=== PATIENT | female | born 1960 | race Caucasian/White ===

== ENCOUNTER 2020-12-20 12:27 | Emergency (ER) | payer MEDICARE, MEDICAID ==
[~2020-12-20 12:27] MED LIST: DES150T PO; OMEP-84 PO
--- NOTE | 2020-12-20 12:42 | NUR ---
Patient to triage with right hand laceration. Dressing in place unable to visualize laceration. Pt came in to triage, sat down and ask if she was going to have to wait. I explained that there would be some wait time. Pt got up and said, "I'm not waiting" and left before triage.
== END 2020-12-20 14:48 | disposition left against medical advice (07) ==
LOC: ER 12:28
DX: S61.411A Laceration without foreign body of right hand, initial encounter (principal); Z53.21 Procedure and treatment not carried out due to patient leaving prior to being seen by health care provider; X58.XXXA Exposure to other specified factors, initial encounter; Y93.89 Activity, other specified; Y92.89 Other specified places as the place of occurrence of the external cause; Y99.8 Other external cause status

== ENCOUNTER 2021-01-04 15:13 | Emergency (ER) | payer MEDICARE, MEDICAID ==
[~2021-01-04] VITALS: Ht 157.5 cm; Wt 78.4 kg
[2021-01-04 15:20] VITALS: BP 140/89
== END 2021-01-04 17:17 | disposition home or self-care (01) ==
LOC: ER 15:14
DX: F41.9 Anxiety disorder, unspecified (principal); F12.90 Cannabis use, unspecified, uncomplicated; F15.90 Other stimulant use, unspecified, uncomplicated; F17.200 Nicotine dependence, unspecified, uncomplicated; Z56.0 Unemployment, unspecified; Z90.49 Acquired absence of other specified parts of digestive tract; Z88.6 Allergy status to analgesic agent; Z88.8 Allergy status to other drugs, medicaments and biological substances; Z91.048 Other nonmedicinal substance allergy status; Z79.899 Other long term (current) drug therapy; Z72.89 Other problems related to lifestyle
CPT/HCPCS: 99281

== ENCOUNTER 2021-01-09 11:36 | Emergency (ER) | payer MEDICARE, MEDICAID ==
[~2021-01-09] VITALS: Ht 157.5 cm; Wt 77.3 kg
--- NOTE | 2021-01-09 12:00 | NUR ---
Pt had lunch and changed into green scrubs
[2021-01-09 12:19] LABS: BASOPHILS # (AUTO) 0.1 X10'3 (0-0.2); EOSINOPHILS # (AUTO) 0.2 X10'3 (0-0.9); EOSINOPHILS % (AUTO) 2.8 % (0-6); HEMATOCRIT 37.6 % (35.0-45.0); HEMOGLOBIN 12.8 g/dl (12.0-16.0); LYMPHOCYTES # (AUTO) 1.4 X10'3 (1.1-4.8); LYMPHOCYTES % (AUTO) 23.6 % (21-51); MEAN CORPUSCULAR HEMOGLOBIN 30.9 PG (27.0-31.0); MEAN CORPUSCULAR HGB CONC 33.9 g/dL (33.0-36.5); MEAN CORPUSCULAR VOLUME 91.1 FL (78-98); MEAN PLATELET VOLUME 8.3 FL (7.4-10.4); MONOCYTES # (AUTO) 0.4 X10'3 (0-0.9); MONOCYTES % (AUTO) 6.8 % (2-12); NEUTROPHILS # (AUTO) 3.8 X10'3 (1.8-7.7); NEUTROPHILS % (AUTO) 65.8 % (42-75); PLATELET COUNT 131 X10'3 (140-440); RED BLOOD COUNT 4.13 X10'6 (4.20-5.60); RED CELL DISTRIBUTION WIDTH 12.9 % (11.5-14.5); WHITE BLOOD COUNT 5.7 X10'3 (4.5-11.0)
[2021-01-09 12:38] LABS: CLARITY,URINE SLIGHTLY CLOUDY (Clear); COLOR,URINE YELLOW (Yellow); GLUCOSE, URINE NEGATIVE (Neg); KETONES,URINE NEGATIVE (Neg); LEUKOCYTE ESTERASE ,URINE NEGATIVE (Neg); NITRITES, URINE NEGATIVE (Neg); OCCULT BLOOD,URINE NEGATIVE (Neg); PH,URINE 5.5 (4.8-8.0); PROTEIN,URINE NEGATIVE (Neg); UROBILINOGEN,URINE 0.2 E.U/dL (0.2-1.0)
[2021-01-09 12:44] LABS: URINE AMPHETAMINE SCREEN NEGATIVE (Neg); URINE BARBITUATE SCREEN NEGATIVE (Neg); URINE BENZODIAZEPINES SCREEN NEGATIVE (Neg); URINE CANNABINOID SCREEN POSITIVE (Neg); URINE COCAINE SCREEN NEGATIVE (Neg); URINE METHADONE SCREEN NEGATIVE (Neg); URINE OPIATE SCREEN NEGATIVE (Neg); URINE PHENCYCLIDINE SCREEN NEGATIVE (Neg)
[2021-01-09 12:47] LABS: UA COLLECTION TYPE CLN CATCH MIDSTREAM
[2021-01-09 13:02] LABS: BACTERIA,URINE FEW /HPF (Neg); FINE GRANULAR CAST 0-3 /LPF (NEGATIVE); MUCUS STRANDS FEW /LPF (Neg); RBC,URINE 0-2 /HPF (0-2)
[2021-01-09 13:02] LABS: ALANINE AMINOTRANSFERASE 25 U/L (12-78); ALBUMIN 3.8 G/DL (3.4-5.0); ALBUMIN/GLOBULIN RATIO 1.1 (1.1-1.5); ALKALINE PHOSPHATASE 44 IU/L (46-116); ANION GAP 10 (8-16); ASPARTATE AMINO TRANSFERASE 21 U/L (10-37); BILIRUBIN,TOTAL 0.2 MG/DL (0.1-1.0); BLOOD UREA NITROGEN 13 MG/DL (7-18); BUN/CREATININE RATIO 17.1 (6.6-38.0); CALCIUM 8.4 MG/DL (8.5-10.1); CHLORIDE 107 MMOL/L (99-107); CREATININE 0.76 MG/DL (0.40-0.90); GLUCOSE 98 MG/DL (70-104); SODIUM 142 MMOL/L (135-145); TOTAL CARBON DIOXIDE 25.1 MMOL/L (24-32); TOTAL PROTEIN 7.2 G/DL (6.4-8.2); eGFR 78 ML/MIN
[2021-01-09 13:07] LABS: POTASSIUM 4.1 MMOL/L (3.5-5.1)
[2021-01-09 13:10] LABS: SQUAMOUS EPITHELIAL CELL,UR MODERATE /LPF (FEW)
[2021-01-09 13:18] LABS: ETHANOL < 0.010 GM/DL (0.0-0.010)
--- NOTE | 2021-01-09 15:40 | NUR ---
Pt resting comfortably on bed.
--- NOTE | 2021-01-09 17:56 | NUR ---
Pt resting comfortably on bed. Equal rise and fall of chest.
--- NOTE | 2021-01-09 18:30 | NUR ---
RECEIVED REPORT FROM ED RN ACRLOS. PT TRANSFERRED TO OF BED [facility] ISSUE.
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
[2021-01-09] MEDS ORDERED: OMEP-50 PO (19:40)
[2021-01-09] MEDS ORDERED: SERT-434 PO (19:40)
[2021-01-09] MEDS ORDERED: BUPR-72 PO (19:40)
[2021-01-09] MEDS ORDERED: TRAZ-256 PO (19:40)
[2021-01-09] MEDS ORDERED: SIMV-42 PO (19:40)
[2021-01-09] MEDS ORDERED: GABA-534 PO (19:40)
[2021-01-09] MEDS ORDERED: BUPR1FIL5 SL (19:40)
[2021-01-09] MEDS ORDERED: gabapentin 400mg capsule PO PRN (19:55)
[2021-01-09] MEDS: buprenorphine/naloxone 2-0.5mg sublingual tablet SL SCH (20:00)
[2021-01-09] MEDS ORDERED: atorvastatin 10mg tablet PO SCH (21:00)
[2021-01-09] MEDS ORDERED: traZODone 50mg tablet PO SCH (21:00)
--- NOTE | 2021-01-09 21:01 | NUR ---
faxed negative covid result to [facility] to assist with pt placement
--- NOTE | 2021-01-09 23:06 | NUR ---
pt appears to be sleeping peacefully on right side. no s/s acute distress, respirations even and unlabored.
--- NOTE | 2021-01-10 02:20 | NUR ---
pt ambulated up to bathroom and back to bed without issue. now resting comfortably on left side. no s/s acute distress at this time
--- NOTE | 2021-01-10 05:25 | NUR ---
pt appears to be resting comfortably on left side. no s/s acute distress at this time. respirations even and unlabored
[2021-01-10 06:01] VITALS: BP 162/93
--- NOTE | 2021-01-10 06:33 | NUR ---
pt sleeping on her lft lateral position ,RR WNL,will cont to monitor.
--- NOTE | 2021-01-10 07:35 | NUR ---
pt went to use restroom at this time .
--- NOTE | 2021-01-10 07:44 | NUR ---
pt laying on her rgt lateral side ,no distrerss noted,will cont to monitor.
[2021-01-10] MEDS ORDERED: pantoprazole 40mg Tablet.DR PO SCH (08:00)
[2021-01-10] MEDS ORDERED: buPROPion SR 150mg tablet PO SCH (08:00)
[2021-01-10] MEDS ORDERED: sertraline 50mg tablet PO SCH (08:00)
[2021-01-10] MEDS: buprenorphine/naloxone 2-0.5mg sublingual tablet SL SCH (08:26)
--- NOTE | 2021-01-10 08:37 | NUR ---
pt has taken her morning meds with water refuse to eat breakfast ,general assessment done ,will cont to monitor.
--- NOTE | 2021-01-10 08:48 | NUR ---
up to use restroom at this time.
--- NOTE | 2021-01-10 09:07 | NUR ---
pt resting in bed at this time,will cont to monitor.
--- NOTE | 2021-01-10 09:41 | NUR ---
pt came to nurses station requesting for nicotine patch stated that she smoke 1/2 a pcket a day,also requesting for toothbrush ,toothpaste and fixadent dental cream.informed that will take the orders from provider for nicotine patch .
[2021-01-10] MEDS ORDERED: nicotine 7mg patch - 24hr TD SCH (10:00)
--- NOTE | 2021-01-10 10:20 | NUR ---
sent the page to social service as per pt request,[facility].
--- NOTE | 2021-01-10 10:48 | NUR ---
social service personel at bedside.
--- NOTE | 2021-01-10 11:46 | NUR ---
spoke to marisol vitale in behavioural health and given report ,don't know about the eta.
[2021-01-11] MEDS ORDERED: nicotine 7mg patch - 24hr TD SCH (08:00)
[2021-01-13] MEDS ORDERED: PALI6TAB6 PO (11:56)
== END 2021-01-10 12:26 ==
LOC: ER 11:36
DX: F32.9 Major depressive disorder, single episode, unspecified (principal); F12.90 Cannabis use, unspecified, uncomplicated; F15.90 Other stimulant use, unspecified, uncomplicated; F14.90 Cocaine use, unspecified, uncomplicated; Z90.49 Acquired absence of other specified parts of digestive tract; Z98.890 Other specified postprocedural states; Z72.89 Other problems related to lifestyle; Z56.0 Unemployment, unspecified; Z88.8 Allergy status to other drugs, medicaments and biological substances; Z88.5 Allergy status to narcotic agent; Z79.899 Other long term (current) drug therapy
CPT/HCPCS: 36415; 80053; 80305; 80320; 81001; 84443; 85025; 87635; 99285; C9803

== ENCOUNTER 2021-08-15 09:39 | Emergency (ER) | payer MEDICARE, MEDICAID ==
[~2021-08-15] VITALS: Ht 157.5 cm; Wt 7.7 kg
[~2021-08-15 09:39] MED LIST changes: +BUPR-72 PO; +BUPR1FIL5 SL; -DES150T PO; +GABA-534 PO; -OMEP-84 PO; +OMEP20CA16 PO; +ONDA-103 PO; +PALI6TAB6 PO; +SERT-434 PO; +SIMV-42 PO; +TRAZ-256 PO
[2021-08-15 09:46] VITALS: BP 177/113
[2021-08-15] MEDS ORDERED: ondansetron/PF 4mg/2ml inj IV ONE (09:55)
[2021-08-15 10:10] LABS: BASOPHILS # (AUTO) 0.1 X10'3 (0-0.2); EOSINOPHILS % (AUTO) 0.3 % (0-6); HEMATOCRIT 43.8 % (35.0-45.0); HEMOGLOBIN 15.2 g/dl (12.0-16.0); LYMPHOCYTES # (AUTO) 1.8 X10'3 (1.1-4.8); LYMPHOCYTES % (AUTO) 19.6 % (21-51); MEAN CORPUSCULAR HEMOGLOBIN 30.7 PG (27.0-31.0); MEAN CORPUSCULAR HGB CONC 34.6 g/dL (33.0-36.5); MEAN CORPUSCULAR VOLUME 88.6 FL (78-98); MEAN PLATELET VOLUME 8.4 FL (7.4-10.4); MONOCYTES # (AUTO) 0.6 X10'3 (0-0.9); MONOCYTES % (AUTO) 6.9 % (2-12); NEUTROPHILS # (AUTO) 6.5 X10'3 (1.8-7.7); NEUTROPHILS % (AUTO) 72.2 % (42-75); PLATELET COUNT 222 X10'3 (140-440); RED BLOOD COUNT 4.95 X10'6 (4.20-5.60); RED CELL DISTRIBUTION WIDTH 13.4 % (11.5-14.5); WHITE BLOOD COUNT 9.1 X10'3 (4.5-11.0)
[2021-08-15 10:32] LABS: ALBUMIN 4.7 G/DL (3.4-5.0); ANION GAP 16 (8-16); BILIRUBIN,TOTAL 0.8 MG/DL (0.1-1.0); BLOOD UREA NITROGEN 16 MG/DL (7-18); CALCIUM 9.6 MG/DL (8.5-10.1); CHLORIDE 100 MMOL/L (99-107); GLUCOSE 120 MG/DL (70-104); POTASSIUM 3.5 MMOL/L (3.5-5.1); SODIUM 140 MMOL/L (135-145); TOTAL CARBON DIOXIDE 23.8 MMOL/L (24-32); TOTAL PROTEIN 7.9 G/DL (6.4-8.2); eGFR 73 ML/MIN
[2021-08-15 10:33] LABS: ALANINE AMINOTRANSFERASE 17 U/L (12-78); ALBUMIN/GLOBULIN RATIO 1.5 (1.1-1.5); ALKALINE PHOSPHATASE 69 IU/L (46-116); ASPARTATE AMINO TRANSFERASE 17 U/L (10-37); LIPASE 72 U/L (73-393)
[2021-08-15] MEDS ORDERED: normal saline 1000ML IV soln IVB ONE (11:40)
[2021-08-15 11:51] LABS: MAGNESIUM 1.8 MG/DL (1.5-2.4)
[2021-08-15 12:06] LABS: CLARITY,URINE CLOUDY (Clear); COLOR,URINE YELLOW (Yellow); GLUCOSE, URINE NEGATIVE (Neg); KETONES,URINE >=80 mg/dl (Neg); LEUKOCYTE ESTERASE ,URINE NEGATIVE (Neg); NITRITES, URINE NEGATIVE (Neg); OCCULT BLOOD,URINE NEGATIVE (Neg); PROTEIN,URINE 30 mg/dl (Neg)
[2021-08-15 12:13] LABS: UA COLLECTION TYPE CLN CATCH MIDSTREAM
[2021-08-15 12:21] LABS: MUCUS STRANDS MANY /LPF (Neg); SQUAMOUS EPITHELIAL CELL,UR MANY /LPF (FEW)
[2021-08-15 12:24] LABS: BACTERIA,URINE FEW /HPF (Neg); RBC,URINE 0-2 /HPF (0-2); WBC,URINE 0-4 /HPF (0-4)
[2021-08-15] MEDS ORDERED: acetaminophen 325mg tablet PO ONE (13:25)
== END 2021-08-15 14:38 | disposition home or self-care (01) ==
LOC: ER 09:40
DX: R19.7 Diarrhea, unspecified (principal); Z20.822 Contact with and (suspected) exposure to COVID-19; R51.9 Headache, unspecified; F12.90 Cannabis use, unspecified, uncomplicated; F15.90 Other stimulant use, unspecified, uncomplicated; F14.90 Cocaine use, unspecified, uncomplicated; Z90.49 Acquired absence of other specified parts of digestive tract; Z98.890 Other specified postprocedural states; Z56.0 Unemployment, unspecified; Z72.89 Other problems related to lifestyle; Z88.8 Allergy status to other drugs, medicaments and biological substances; Z88.5 Allergy status to narcotic agent; Z79.899 Other long term (current) drug therapy
CPT/HCPCS: 36415; 74176; 80053; 81001; 83690; 83735; 85025; 87635; 96374; 99284; C9803; J2405; J7030

== ENCOUNTER 2021-09-06 12:07 | Emergency (ER) | payer MEDICARE, MEDICAID ==
[~2021-09-06] VITALS: Ht 157.5 cm; Wt 72.7 kg
[2021-09-06 12:21] VITALS: BP 185/122
--- NOTE | 2021-09-06 13:40 | NUR ---
PATIENT ELOPED FROM ER AND IS NOT IN THE AMBULANCE BAY LOCATION. PROVIDER NOTIFIED OF PATIENT'S ELOPEMENT.
== END 2021-09-06 14:53 | disposition left against medical advice (07) ==
LOC: ER 12:08
DX: R19.7 Diarrhea, unspecified (principal); R11.0 Nausea; F12.90 Cannabis use, unspecified, uncomplicated; F14.90 Cocaine use, unspecified, uncomplicated; F15.90 Other stimulant use, unspecified, uncomplicated; Z56.0 Unemployment, unspecified; Z90.49 Acquired absence of other specified parts of digestive tract; Z79.899 Other long term (current) drug therapy; Z88.8 Allergy status to other drugs, medicaments and biological substances; Z91.048 Other nonmedicinal substance allergy status
CPT/HCPCS: 99281

== ENCOUNTER 2024-11-30 10:44 | Outpatient (CLI) | payer MEDICARE, MEDICAID ==
[~2024-11-30 10:44] MED LIST changes: +ALBU8HFA IH; +BREX0.25 PO; +BUPR-480 PO; -BUPR-72 PO; +CHOL500050 PO; +DICL100G59 TOP; -GABA-534 PO; +GABA-535 PO; +HYDR-3717 PO; +IBUP-1986 PO; +LOPE2CAP PO; -ONDA-103 PO; -PALI6TAB6 PO; +PRAZ5CAP2 PO; +ROPI0.2544 PO
--- NOTE | 2024-11-30 12:32 | RADIOLOGY REPORT ---
Procedure: CT CT CHEST Reason for study/Clinical History: SOLITARY PULMONARY NODULE Comparison Study: None Exam Date: 11/30/2024 11:00 AM TECHNIQUE: Multidetector CT of the chest was performed from the lung apices to the upper abdomen with out the use of intravenous contract. Axial, coronal and sagittal multiplanar reformats were performed . Radiation Dose Information: CT Dose: CTDI volume is 16 mGy. Dose-length product is 614 mGy*cm The dose indicators for CT are the volume Computed Tomography (CT) Dose Index (CTDIvol) and the Dose Length Product (DLP), and are measured in units of mGy and mGy-cm, respectively. These indicators are not patient dose, but values generated from the CT scanner acquisition factors. The report includes radiation exposure data for exposures received during this examination. FINDINGS: Lower neck: Normal thyroid. Lungs: Areas of traction bronchiectasis in the subpleural upper lung zones. Lung mascorro are hyperexpa nded. 3 mm noncalcified nodule in the left lower lung zone. No focal infiltrate Heart/Vascular Structures: Normal heart size. No pericardial effusion. Lymph Nodes: No adenopathy Pleura: No pleural effusion or significant pneumothorax. Musculoskeletal: No acute osseous abnormality. Soft tissues: Normal. Upper abdomen: Retrocardiac hiatal hernia containing portion of the stomach. Gallbladder is been jaron favio. IMPRESSION: 1. No change from prior CT chest. There is a small nodular density in the left lower lung zone proba cassidy scar. 2. Signs of mild COPD 3. Retrocardiac hiatal hernia containing portion of the stomach Radiation optimization: All CT scans at this facility use at least one of these dose optimization raj hniques: automated exposure control mA and/or kV adjustment per patient size (includes targeted exam s where dose is matched to clinical indication) or iterative reconstruction.
== END 2024-11-30 23:59 | disposition home or self-care (01) ==
LOC: RAD 10:44
PROVIDERS: ATTEND Family Medicine
DX: R91.1 Solitary pulmonary nodule (principal); J44.9 Chronic obstructive pulmonary disease, unspecified; J47.9 Bronchiectasis, uncomplicated; K44.9 Diaphragmatic hernia without obstruction or gangrene
CPT/HCPCS: 71250